=== PATIENT | male | born 1955 | race Caucasian/White ===

== ENCOUNTER → 2016-08-27 | Outpatient (REF) | LOC: LAB 16:41 | PROVIDERS: ATTEND Family Medicine | DX: Z02.1 Encounter for pre-employment examination (principal) | CPT/HCPCS: 86706 ==

== ENCOUNTER 2016-10-23 17:11 | Emergency (ER) | payer OTHER ==
[~2016-10-23] VITALS: Ht 180.3 cm; Wt 81.9 kg
--- OUTSIDE RECORDS SUMMARY | 2016-10-23 17:15 | XMS REPORT | Continuity of Care Document ---
Author Author [facility] Organization [facility] Address Unknown Phone Unavailable Care Team Providers Care Furnace Operator And Tender Name Role Phone Bola Alfaro PCP [phone] Source Comments Some departments are not documenting in the electronic medical record. If you do not see the information that you expected, contact Release of Information in the Health Information Management department at [phone] for further assistance in locating additional records.[facility] Active Allergies and Adverse Reactions Not on File Current Medications Not on file Active Problems Not on file Social History Tobacco Use Types Packs/Day Years Used Date Never Assessed Plan of Care Health Maintenance Due Date Last Done Comments Hepatitis C Screening 1955 Physical (Comprehensive) 08/14/1963 Exam Pertussis Vaccine 08/14/1967 Tetanus Vaccine 1973 Colorectal Cancer 2006 Screening Shingles Vaccine 2016 Influenza Vaccine 01/29/2017 Results from Last 3 Months Not on file
--- OUTSIDE RECORDS SUMMARY | 2016-10-23 17:17 | XMS REPORT | Continuity of Care Document ---
Author Author [facility] Organization [facility] Address Unknown Phone Unavailable Care Team Providers Care Final Inspector Balance Wheel Name Role Phone Bola Alfaro PCP [phone] Source Comments Some departments are not documenting in the electronic medical record. If you do not see the information that you expected, contact Release of Information in the Health Information Management department at [phone] for further assistance in locating additional records.[facility] Active Allergies and Adverse Reactions Not on [...]
[2016-10-23] MEDS ORDERED: NITROGLYCERIN SUBLINGUAL 0.4 MG (NITROQUICK) TABLET SL ONE (17:59)
[2016-10-23] MEDS ORDERED: SODIUM CHLORIDE FLUSH 3 ML SYR IV PRN (18:00)
[2016-10-23] MEDS ORDERED: morphine INJ 4 MG/ML 1 ML SYRINGE IV PRN (18:00)
[2016-10-23] MEDS ORDERED: SODIUM CHLORIDE FLUSH 10 ML SYR IV PRN (18:00)
[2016-10-23] MEDS ORDERED: SODIUM CHLORIDE 250 ML IV PRN (18:00)
[2016-10-23] MEDS ORDERED: ASPIRIN 81 MG CHEW (LOW-DOSE) PO ONE (18:00)
[2016-10-23] MEDS ORDERED: ONDANSETRON 2 MG/ML (Z0FRAN) 2 ML VIAL IV ONE (18:00)
[2016-10-23] MEDS: NITROGLYCERIN SUBLINGUAL 0.4 MG (NITROQUICK) TABLET SL PRN ×2 (18:04→18:10)
[2016-10-23 18:18] LABS: BASOPHILS % (AUTO) 1 % (0-2); EOSINOPHILS # (AUTO) 0.2 10^3uL; EOSINOPHILS % (AUTO) 1 % (0-4); LYMPHOCYTES # (AUTO) 1.3 X10^3; MEAN CORPUSCULAR HEMOGLOBIN 32.3 PG (26.0-34.0); MEAN CORPUSCULAR HGB CONC 33.9 g/dL (31.0-37.0); MEAN CORPUSCULAR VOLUME 95 FL (80-100); MEAN PLATELET VOLUME 10.5 FL (6.0-9.5); MONOCYTES # (AUTO) 0.9 X10^3; MONOCYTES % (AUTO) 8 % (3-11); NEUTROPHILS # (AUTO) 9.4 X10^3; NEUTROPHILS % (AUTO) 79 % (51-67); PLATELET COUNT 210 10^3uL (150-450); WHITE BLOOD COUNT 11.85 10^3uL (4.0-11.0)
--- NOTE | 2016-10-23 18:22 | Diagnostic Imaging Report ---
INDICATION: 61-year-old male with chest pain and shortness of breath. COMPARISON: None. EXAMINATION: Single view of the chest was obtained. FINDINGS: The cardiac contour is normal. No consolidations are seen. There is suggestion of some mild central venous congestion. There is a dual-chamber left-sided pacer. Soft tissues and bony fracture are normal. IMPRESSION: Questionable mild central venous prominence but no evidence of acute consolidation. Dictated by: Dictated on workstation # [id number]
[2016-10-23 18:28] LABS: ALBUMIN 3.8 g/dL (3.4-5.0); ALKALINE PHOSPHATASE 66 U/L (38-126); ANION GAP 11.4 MEQ/L (3-15); BUN/CREATININE RATIO 17 (10-20); CALCULATED IONIZED CALCIUM 4.2 mg/dL (3.8-4.6); CREATINE KINASE 113 U/L (55-170); MAGNESIUM* 1.9 mg/dL (1.6-2.3); TOTAL PROTEIN 6.3 g/dL (6.4-8.5)
--- NOTE | 2016-10-23 18:34 | NUR ---
Patient denies any difference in pain with nitro x2. Reported to Dr. Rueda and asked if he wanted me to give the 3rd nitro and he said "No"
[2016-10-23] MEDS ORDERED: diphenhydrAMINE 50 MG/ML INJ (BENADRYL) IV ONE (18:45)
--- NOTE | 2016-10-23 19:42 | Diagnostic Imaging Report ---
PROCEDURE: CT angiography of the chest with contrast. TECHNIQUE: Multiple contiguous axial images were obtained through the chest after uneventful bolus administration of intravenous contrast. Reconstructed CTA MIP acquisitions were also performed. Indication: Chest pain and dyspnea. Comparison: None. Discussion: No pulmonary embolus identified. The thoracic aorta is normal in caliber and configuration. The pulmonary arteries are not dilated. Normal heart size. No pleural or pericardial fluid. Shotty mediastinal lymph nodes, likely reactive. No axillary adenopathy. Left-sided pacemaker is present. Moderate emphysema is noted. No focal consolidation or suspicious pulmonary nodule. Subsegmental atelectasis is present within the lung bases. The visualized upper abdomen is unremarkable. No acute osseous abnormality identified. Impression: 1. No pulmonary embolus or other acute abnormality identified. 2. Emphysema. Dictated by: Dictated on workstation # [id number]
[2016-10-23] MEDS ORDERED: SOTA120T PO (20:12)
[2016-10-23] MEDS ORDERED: NITR0.4T7 SL (20:14)
[2016-10-23] MEDS ORDERED: ASPI325T4 PO (20:14)
[2016-10-23] MEDS ORDERED: ATOR80TA PO (20:14)
[2016-10-23 20:15] VITALS: BP 111/59
== END 2016-10-23 20:05 | disposition home or self-care (01) ==
LOC: ED 17:13
DX: J20.8 Acute bronchitis due to other specified organisms (principal)
CPT/HCPCS: 36415; 71010; 71275; 80053; 82550; 82553; 83735; 83880; 84484; 85025; 85610; 85730; 93005; 96374; 99285; J1200; Q9967; 93010